=== PATIENT | male | born 1965 | race Caucasian/White ===

== ENCOUNTER → 2023-11-28 18:02 | Outpatient (REF) | payer BC, SELFPAY | LOC: MRI 3T 18:02 | PROVIDERS: ATTENDING PHYSICIAN Physician Assistant Surgical; FAMILY PHYSICIAN Family Medicine | DX: M25.572 Pain in left ankle and joints of left foot (principal) | CPT/HCPCS: 73721 ==

== ENCOUNTER → 2024-07-29 07:30 | Outpatient (REF) | payer BC, SELFPAY | LOC: CLAB 07:30 | PROVIDERS: ATTENDING PHYSICIAN Surgery | DX: N47.4 Benign cyst of prepuce (principal); N44.2 Benign cyst of testis; Z30.2 Encounter for sterilization | CPT/HCPCS: 88304 ==